=== PATIENT | male | born 1945 | race Caucasian/White ===

== ENCOUNTER 2020-01-16 07:09 | Emergency (ER) | payer BC, MEDICARE, OTHER ==
[2020-01-16] MEDS ORDERED: EPINEPHrine 1MG/10ML SYRINGE 1.5IN IV STA ×8 (07:11→07:39)
[2020-01-16] MEDS ORDERED: AMIODARONE 150MG/3ML INJ (J0282) IVP STA (07:22)
[2020-01-16] MEDS ORDERED: EPINEPHrine 1MG/10ML SYRINGE 1.5IN As Ordered ONE (07:26)
[2020-01-16] MEDS ORDERED: SODIUM BICARBONATE 8.4% INJ 50 ML SYRINGE IV STA (07:29)
[2020-01-16] MEDS ORDERED: LIDOCAINE 2% INJ 100 MG/5 ML SYRINGE IV STA ×2 (07:34→07:38)
[2020-01-16] MEDS ORDERED: CALCIUM CHLORIDE 10% 1 GM in D5W 100 ML IV ONE (07:35)
[2020-01-16] MEDS ORDERED: SODIUM BICARBONATE 8.4% INJ 50 ML SYRINGE ONE (09:07)
[2020-01-16] MEDS ORDERED: EPINEPHrine 1MG/10ML SYRINGE 1.5IN ONE (09:07)
[2020-01-16] MEDS ORDERED: LIDOCAINE 2% INJ 100 MG/5 ML SYRINGE ONE (09:07)
[2020-01-16] MEDS ORDERED: CALCIUM CHLORIDE 10% 1 GM/10 ML SYR ONE (09:07)
[2020-01-16] MEDS ORDERED: AMIODARONE 150MG/3ML INJ (J0282) ONE (09:07)
== END 2020-01-16 09:45 | disposition expired ==
LOC: M ED 07:09
DX: I46.9 Cardiac arrest, cause unspecified (principal); J96.90 Respiratory failure, unspecified, unspecified whether with hypoxia or hypercapnia; I10 Essential (primary) hypertension; E11.9 Type 2 diabetes mellitus without complications; E07.9 Disorder of thyroid, unspecified
CPT/HCPCS: 31500; 92950; 96374; 96375; 99285; J0282

== ENCOUNTER → 2020-01-16 | Outpatient (REF) | LOC: M LAB 11:02 ==